=== PATIENT | male | born 1990 | race Caucasian/White ===

== ENCOUNTER 2022-01-31 04:31 | Emergency (ER) | payer SELFPAY ==
[~2022-01-31] VITALS: Ht 170.2 cm; Wt 88.5 kg
[~2022-01-31 04:31] MED LIST: ONDA4TAB6 PO
[2022-01-31 04:32] VITALS: BP 126/92
== END 2022-01-31 08:43 | disposition left against medical advice (07) ==
LOC: M ED 04:31
DX: Z53.21 Procedure and treatment not carried out due to patient leaving prior to being seen by health care provider (principal)

== ENCOUNTER → 2022-11-22 | Outpatient (REF) | payer OTHER | LOC: M LAB REF 13:52 | PROVIDERS: ATTEND Physician Assistant Medical | DX: B34.9 Viral infection, unspecified (principal) ==